=== PATIENT | female | born 1995 | race Hispanic/Latino ===

== ENCOUNTER 2021-01-12 07:57 | Emergency (ER) | payer BC, OTHER ==
[2021-01-12 08:49] LABS: #Eosinphils 0.2 10x3/uL (0.0-0.5); #Monocytes 0.5 10x3/uL (0.0-1.1); #Neutrophils 3.3 10x3/uL (1.5-8.4); %Basophils 0.6 % (0.0-2.0); %Eosinophils 3.3 % (0.0-6.0); %Lymphocytes 40.6 % (18.0-47.0); %Monocytes 6.8 % (0.0-10.0); %Neutrophils 48.4 % (40.0-75.0); Hemoglobin 14.1 g/dL (12.0-15.5); Mean Corpuscular HGB CONC 34.3 g/dL (32.0-36.0); Mean Corpuscular Volume 81.5 fl (81.6-98.3); Mean Platelet Volume 10.7 fl (7.4-10.4); Platelet Count 217 10x3/uL (150-450); RBC Distribution Width 12.3 % (11.5-14.5); Red Blood Cell (RBC) Count 5.04 10x6/uL (3.90-5.03); White Blood Cell (WBC) Count 6.9 10x3/uL (3.5-10.5)
[2021-01-12 09:03] LABS: ALT (SGPT) 68 U/L (8-55); AST (SGOT) 37 U/L (5-34); Alkaline Phosphatase 76 U/L (40-110); Anion Gap 15 mmol/L (10-20); BUN (Urea Nitrogen) 9 mg/dL (7.0-18.7); Calc. Creatinine Clearance 0 mL/min (70-130); Calcium 9.2 mg/dL (7.8-10.44); Carbon Dioxide 24 mmol/L (22-29); Chloride 103 mmol/L (98-107); Globulin 3.5 g/dL (2.4-3.5); Glucose 109 mg/dL (70-105); Lipase 29 U/L (8-78); Potassium 3.7 mmol/L (3.5-5.1); Protein, Total 7.5 g/dL (6.0-8.3); Sodium 138 mmol/L (136-145)
[2021-01-12 09:33] LABS: Bilirubin Neg (Negative); Blood, Urine 10 (Negative); Clarity Slightly Cloudy (Clear); Glucose, Urine (Dipstick) Normal (Negative); Ketone, Urine 5 mg/dL (Negative); Leukocyte Negative (Negative); Nitrite Positive (Negative); Protein, Urine (Dipstick) Negative (Neg-Trace); Specific Gravity, Urine 1.015 (1.002-1.036); Urobilinogen Normal mg/dL (Less than 2)
[2021-01-12 09:40] LABS: Bacteria/HPF 3+ HPF (None Seen); RBC/HPF 0-3 HPF (0-3); Squamous Epithelial 0-3 HPF (0-3); WBC/HPF 0-3 HPF (0-3)
[2021-01-12 09:42] LABS: BHCG - Serum Negative (NEGATIVE); Pregs Control Background? CLEAR/WHITE (CLR/WHITE); Pregs Control Bar Appear? YES (CONTROL BAR)
[2021-01-12] MEDS ORDERED: Ketorolac Tromethamine 30 MG/ML VIAL IVP SCH (09:45)
== END 2021-01-12 10:48 | disposition home or self-care (01) ==
LOC: CSHERS 07:57
DX: S30.1XXA Contusion of abdominal wall, initial encounter (principal); N39.0 Urinary tract infection, site not specified; W22.8XXA Striking against or struck by other objects, initial encounter; Y99.0 Civilian activity done for income or pay
CPT/HCPCS: 36415; 74177; 80053; 81003; 81015; 83690; 84703; 85025; 87077; 87086; 87186; J1885